=== PATIENT | male | born 1995 | race Two or more races ===

== ENCOUNTER 2020-08-26 11:57 | Inpatient (IN) | payer MEDICAID, OTHER ==
[~2020-08-26] VITALS: Ht 162.6 cm; Wt 103.2 kg
[2020-08-26 13:09] LABS: Basophils # (auto) 0.1 10 ^3/uL (0-0.2); Basophils % (auto) 0.5 % (0.0-2.0); Eosinophils # (auto) 0 10 ^3/uL (0-0.8); Eosinophils % (auto) 0.2 % (0.0-7.0); Hematocrit 45.2 % (41.0-53.0); Hemoglobin 15.9 g/dL (13.5-17.5); Lymphocytes # (auto) 1.5 10 ^3/uL (0.4-5.4); Mean Corpuscular Hemoglobin 31.5 pg (28.0-32.0); Mean Corpuscular Hgb Conc. 35.1 g/dL (32.0-36.0); Mean Corpuscular Volume 89.7 fL (80.0-100.0); Monocytes # (auto) 0.8 10 ^3/uL (0-1.3); Neutrophils # (auto) 10.3 10 ^3/uL (1.6-8.6); Neutrophils % (auto) 81.3 % (37.0-80.0); Nucleated Red Blood Cells % 0.5 %; Platelet Count (auto) 226 10^3/uL (140-450); Red Blood Cells 5.04 10^6/uL (4.5-5.90); Red Cell Distribution Width 12.8 % (11.8-14.3); White Blood Cell 12.7 10^3/uL (4.4-10.8)
[2020-08-26 13:17] LABS: Albumin 4.3 g/dL (3.4-5.0); Calcium 9.2 mg/dL (8.5-10.1); Potassium 4.1 mmol/L (3.5-5.1)
[2020-08-26 13:22] LABS: BUN/Creatinine Ratio 9.8; Bilirubin, Total 0.8 mg/dL (0.2-1.0); Total Protein 8.8 g/dL (6.4-8.2)
[2020-08-26] MEDS ORDERED: KETOROLAC TROMETH 30 MG/ML 1ML VIAL IV ONE (16:15)
[2020-08-26] MEDS ORDERED: TAMSULOSIN HYDROCHLORIDE 0.4 MG CAP PO ONE (16:15)
[2020-08-26] MEDS ORDERED: LISI20TA28 PO (16:59)
[2020-08-26] MEDS ORDERED: MORPHINE SULF INJ 2 MG/ML SYRINGE 1ML IV PRN (19:30)
[2020-08-26] MEDS ORDERED: NITROGLYCERIN 0.4 MG SL TAB SL PRN (19:30)
[2020-08-26] MEDS ORDERED: ONDANSETRON HCL 4 MG/2 ML VIAL IV PRN (19:45)
[2020-08-26] MEDS ORDERED: SOD CHL 0.45% 1,000 ML IV ONE (19:45)
[2020-08-26] MEDS ORDERED: HYDROcodone-ACET 5/325MG TAB PO PRN (19:45)
[2020-08-26] MEDS ORDERED: ACETAMINOPHEN 325 MG TAB PO PRN (19:45)
[2020-08-26 22:00] VITALS: BP 150/100
[2020-08-26 22:41] VITALS: BP 158/100
[2020-08-26] MEDS ORDERED: LISINOPRIL 20 MG TAB PO ONE (23:00)
[2020-08-26] MEDS ORDERED: ALBU108A5 PO (23:05)
[2020-08-27] MEDS: hydrALAZINE HCL 20 MG/ML VL IV PRN ×2 (02:00→21:11)
[2020-08-27 04:07] LABS: Urine Bacteria FEW /hpf (None Seen); Urine Blood Negative /uL (Negative); Urine Specific Gravity 1.012 (1.001-1.035); Urine WBC 2 /hpf (0 - 3)
[2020-08-27 05:00] VITALS: BP 157/87
[2020-08-27] MEDS: MORPHINE SULF INJ 2 MG/ML SYRINGE 1ML IV PRN ×3 (05:02→22:26)
[2020-08-27 06:51] VITALS: BP 145/82
[2020-08-27 07:09] LABS: Potassium 3.6 mmol/L (3.5-5.1)
[2020-08-27 07:11] LABS: Basophils # (auto) 0.1 10 ^3/uL (0-0.2); Basophils % (auto) 0.6 % (0.0-2.0); Eosinophils # (auto) 0.1 10 ^3/uL (0-0.8); Hematocrit 41.6 % (41.0-53.0); Hemoglobin 14.7 g/dL (13.5-17.5); Lymphocytes # (auto) 2.3 10 ^3/uL (0.4-5.4); Lymphocytes % (auto) 19.3 % (10.0-50.0); Mean Corpuscular Hemoglobin 31.9 pg (28.0-32.0); Mean Corpuscular Hgb Conc. 35.3 g/dL (32.0-36.0); Mean Corpuscular Volume 90.5 fL (80.0-100.0); Monocytes # (auto) 0.7 10 ^3/uL (0-1.3); Neutrophils # (auto) 8.6 10 ^3/uL (1.6-8.6); Neutrophils % (auto) 73.1 % (37.0-80.0); Nucleated Red Blood Cells % 0.2 %; Platelet Count (auto) 201 10^3/uL (140-450); Red Cell Distribution Width 12.8 % (11.8-14.3); White Blood Cell 11.8 10^3/uL (4.4-10.8)
[2020-08-27 07:14] LABS: BUN/Creatinine Ratio 10.3
[2020-08-27 07:15] LABS: Albumin 3.9 g/dL (3.4-5.0); Bilirubin, Total 1.1 mg/dL (0.2-1.0); Calcium 8.6 mg/dL (8.5-10.1)
[2020-08-27 09:00] VITALS: BP 147/83
[2020-08-27] MEDS: LISINOPRIL 20 MG TAB PO SCH (09:25)
[2020-08-27 13:00] VITALS: BP 150/108
[2020-08-27] MEDS ORDERED: SODIUM CHLORIDE 0.9% 1,000 ML IV ONE (15:15)
[2020-08-27] MEDS ORDERED: ACET325T10 PO (16:57)
[2020-08-27 17:06] VITALS: BP 156/95
[2020-08-27] MEDS ORDERED: TAMSULOSIN HYDROCHLORIDE 0.4 MG CAP PO SCH (18:00)
[2020-08-27] MEDS: SODIUM CHLORIDE 0.9% 1,000 ML IV SCH (21:16)
[2020-08-27 22:00] VITALS: BP 171/105
[2020-08-28 00:12] VITALS: BP 150/92
[2020-08-28] MEDS: MORPHINE SULF INJ 2 MG/ML SYRINGE 1ML IV PRN (02:39)
[2020-08-28 05:00] VITALS: BP 160/93
[2020-08-28] MEDS: hydrALAZINE HCL 20 MG/ML VL IV PRN (06:36)
[2020-08-28 08:30] VITALS: BP 138/93
[2020-08-28] MEDS: LISINOPRIL 20 MG TAB PO SCH (10:12)
[2020-08-28] MEDS ORDERED: SODIUM CHLORIDE 0.9% 1,000 ML IV ONE (11:00)
[2020-08-28] MEDS: SODIUM CHLORIDE 0.9% 1,000 ML IV SCH (12:21)
[2020-08-28 12:59] VITALS: BP 146/75
[2020-08-28 17:06] VITALS: BP 151/84
== END 2020-08-28 17:50 | disposition home or self-care (01) | DRG 465 ==
LOC: ER 11:57 → EDBD 11:57 → ER 16:18 → OVERFLOW 19:29 → EAST 22:00
PROVIDERS: ADMIT Internal Medicine; ATTEND Internal Medicine
DX: N13.2 Hydronephrosis with renal and ureteral calculous obstruction (principal); D72.829 Elevated white blood cell count, unspecified; J45.909 Unspecified asthma, uncomplicated; I10 Essential (primary) hypertension; Z20.822 Contact with and (suspected) exposure to COVID-19; Z83.3 Family history of diabetes mellitus; Z82.3 Family history of stroke; Z82.49 Family history of ischemic heart disease and other diseases of the circulatory system; Z83.42 Family history of familial hypercholesterolemia; Z82.61 Family history of arthritis; Z79.899 Other long term (current) drug therapy; Z79.891 Long term (current) use of opiate analgesic; Z79.01 Long term (current) use of anticoagulants; Z90.49 Acquired absence of other specified parts of digestive tract
CPT/HCPCS: 36415; 74176; 80053; 81001; 82962; 85025; 87426; 96360; G0378; J1885; J2405

== ENCOUNTER 2020-09-06 14:04 | Emergency (ER) | payer MEDICAID ==
[~2020-09-06] VITALS: Ht 162.6 cm; Wt 99.8 kg
[~2020-09-06 14:04] MED LIST: ACET325T10 PO; ALBU108A5 PO; LISI20TA28 PO
[2020-09-06 16:03] LABS: Albumin 4.2 g/dL (3.4-5.0); Calcium 8.9 mg/dL (8.5-10.1)
[2020-09-06 16:07] LABS: BUN/Creatinine Ratio 12.8; Bilirubin, Total 0.7 mg/dL (0.2-1.0); Total Protein 8.5 g/dL (6.4-8.2)
[2020-09-06 18:15] LABS: Urine Bacteria FEW /hpf (None Seen); Urine Blood Negative /uL (Negative); Urine Mucus FEW (None Seen); Urine WBC 6 /hpf (0 - 3)
[2020-09-06 19:47] VITALS: BP 173/100
== END 2020-09-06 19:46 | disposition home or self-care (01) ==
LOC: ER 14:04
DX: I16.0 Hypertensive urgency (principal); Z79.899 Other long term (current) drug therapy
CPT/HCPCS: 36415; 80053; 81001

== ENCOUNTER 2024-08-19 06:01 | Inpatient (IN) | payer MEDICAID ==
[~2024-08-19] VITALS: Ht 30.5 cm; Wt 454.0 kg
[~2024-08-19 06:01] MED LIST changes: +ACET-1882 PO; -ACET325T10 PO; -LISI20TA28 PO; +LISI20TA56 PO
--- NOTE | 2024-08-19 06:53 | ED.PDOC ---
GI ASSESSMENT HPI Comments 29 y/o M, with PMHx of HTN presents to the ED for CC of abdominal pain. Patient states, he has been experiencing diffuse abdominal pain with associated symptoms of nausea and vomiting x4days. Patient reports, drinking heavily on Saturday (08/15/24) and symptoms beginning after. Patient denies sweats, chills, fatigue, hematemesis, or melena. No other symptoms or modifying factors present at this time. Time Seen by MD: 06:30 Primary Care Provider: NADIYA Reviewed Notes: Nurses Notes, Medications, Allergies Allergies: Coded Allergies: No Known Drug Allergy (Verified Allergy, Unknown, 08/26/20) Home Meds Active Scripts Acetaminophen (Acetaminophen) 325 Mg Tab, 650 MG PO Q6HP PRN, #60 TAB Prov:JILLIAN LAMA MD 08/27/20 Reported Medications Albuterol Sulfate (Albuterol Sulfate Hfa) 108 Mcg/Act Aer, 1-2 PUFF PO PRN for SHORTNESS OF BREATH 08/26/20 Lisinopril (Lisinopril) 20 Mg Tab, 20 MG PO DAILY for 30 Days, MG 08/26/20 Information Source: Patient Mode of Arrival: Ambulatory Timing: Days Duration: Since onset Prehospital treatment: None Quality: None Vomitus: Watery Stool: Normal Severity: Moderate Recent: None Recent Hx of: None Pain Location: Diffuse Modifying Factors: Nothing Associated sign and symptoms: Nausea, Vomiting, Abdominal Pain Past Medical History PAST MEDICAL HISTORY: HTN Surgical History: Denies all surgeries Family History Family History: Family hx of DM, Family hx of HTN Family History (Other): Asthma, Hyperlipidema Social History Smoker: Non-Smoker Alcohol: Occasionally Drugs: Denies Drug Use Lives In: Home Constitutional: denies: chills, diaphoresis, fatigue, fever, malaise, sweats, weakness, others EENTM: denies: blurred vision, double vision, ear bleeding, ear discharge, ear drainage, ear pain, ear ringing, eye pain, eye redness, hearing loss, mouth pain, mouth swelling, nasal discharge, nose bleeding, nose congestion, nose pain, photophobia, tearing, throat pain, throat swelling, voice changes, others Respiratory: denies: cough, hemoptysis, orthopnea, SOB at rest, shortness of breath, SOB with excertion, stridor, wheezing, others Cardiovascular: denies: chest pain, dizzy spells, diaphoresis, Dyspnea on exertion, edema, irregular heart beat, left arm pain, lightheadedness, palpitations, PND, syncope, others Gastrointestinal: reports: abdominal pain, nausea, vomiting; denies: abdomen distended, blood streaked bowels, constipated, diarrhea, dysphagia, difficulty swallowing, hematemesis, melena, poor appetite, poor fluid intake, rectal bleeding, rectal pain, others Genitourinary: denies: burning, dysuria, flank pain, frequency, hematuria, incontinence, penile discharge, penile sore, pain, testicle pain, testicle swelling, urgency, others Neurological: denies: dizziness, fainting, headache, left sided numbness, left sided weakness, numbness, paresthesia, pre-existing deficit, right sided numbness, right sided weakness, seizure, speech problems, tingling, tremors, weakness, others Musculoskeletal: denies: back pain, gout, joint pain, joint swelling, muscle pain, muscle stiffness, neck pain, others Integumetry: denies: bruises, change in color, change in hair/nails, dryness, laceration, lesions, lumps, rash, wounds, others Allergic/Immunocompromised: denies: Difficulty Healing, Frequent Infections, Hives, Itching, others Hematologic/Lymphatic: denies: anemia, blood clots, easy bleeding, easy bruising, swollen glands, others Endocrine: denies: excessive hunger, excessive sweating, excessive thirst, excessive urination, flushing, intolerance to cold, intolerance to heat, unexplained weight gain, unexplained weight loss, others Psychiatric: denies: anxiety, bipolar disorder, depression, hopeless, panic disorder, schizophrenia, sleepless, suicidal, others All Other Systems: Reviewed and Negative Physical Exam General Appearance: Moderate Distress HEENT: Normal ENT Inspection, Pharynx Normal, TMs Normal Neck: Full Range of Motion, Non-Tender, Normal, Normal Inspection Respiratory: Chest Non-Tender, Lungs Clear, No Accessory Muscle Use, No Respiratory Distress, Normal Breath Sounds Cardiovascular: No Edema, No JVD, No Murmur, No Gallop, Normal Peripheral Pulses, Regular Rate/Rhythm Breast Exam: Deferred Gastrointestinal: No Organomegaly, Non Tender, No Pulsatile Mass, Normal Bowel Sounds, Soft Genitalia: Deferred Pelvic: Deferred Rectal: Deferred Extremities: No calf tenderness, Normal capillary refill, Normal inspection, Normal range of motion, Non-tender, No pedal edema Musculoskeletal : Apperance: Normal Neurologic: Alert, starch dumper II-XII nml as Tested, No Motor Deficits, Normal Affect, Normal Mood, No Sensory Deficits Cerebellar Function: Normal Reflexes: Normal Skin: Dry, Normal Color, Warm Peripheral Pulses: 3+ Radial (R), 3+ Radial (L) Lymphatic: No Adenopathy Was a procedure done? Was a procedure done?: No GI differential Dx Differential Diagnosis: Constipation, Diverticular disease, Esophagitis, Gastritis/PUD, Gastroenteritis, Electrolyte Imbalance, Food Poisoning, Bacterial, Viral X-Ray, Labs, Meds, VS Lab Test 08/19/24 06:49 Range/Units White Blood Count 17.8 H 4.4-10.8 10^3/uL Red Blood Count 4.75 4.5-5.90 10^6/uL Hemoglobin 15.2 13.5-17.5 g/dL Hematocrit 42.9 41.0-53.0 % Mean Corpuscular Volume 90.5 80.0-100.0 fL Mean Corpuscular Hemoglobin 32.0 28.0-32.0 pg Mean Corpuscular Hemoglobin Concent 35.4 32.0-36.0 g/dL Red Cell Distribution Width 12.4 11.8-14.3 % Platelet Count 199 140-450 10^3/uL Mean Platelet Volume 9.8 6.9-10.8 fL Neutrophils (%) (Auto) 80.2 H 37.0-80.0 % Lymphocytes (%) (Auto) 11.4 10.0-50.0 % Monocytes (%) (Auto) 7.3 0.0-12.0 % Eosinophils (%) (Auto) 0.9 0.0-7.0 % Basophils (%) (Auto) 0.2 0.0-2.0 % Neutrophils # (Auto) 14.3 H 1.6-8.6 10 ^3/uL Lymphocytes # (Auto) 2.0 0.4-5.4 10 ^3/uL Monocytes # (Auto) 1.3 0-1.3 10 ^3/uL Eosinophils # (Auto) 0.2 0-0.8 10 ^3/uL Basophils # (Auto) 0 0-0.2 10 ^3/uL Nucleated Red Blood Cells 0.0 % Sodium Level 143 136-145 mmol/L Potassium Level 3.0 L 3.5-5.1 mmol/L Chloride Level 107 98-107 mmol/L Carbon Dioxide Level 26 20-31 mmol/L Anion Gap 10 5-15 Blood Urea Nitrogen 16 9-23 mg/dL Creatinine 1.25 0.700-1.30 mg/dL Glomerular Filtration Rate Calc 79 >90 mL/min BUN/Creatinine Ratio 12.8 10.0-20.0 Serum Glucose 105 74-106 mg/dL Calcium Level 9.8 8.7-10.4 mg/dL Patient alert. Complaining of nausea vomiting. Vitals stable. Answering questions. States that he has been drinking and using marijuana. Counseled patient on effects of using drugs for 15 minutes. Establish intravenous access. Was given fluids. Was given Zofran. Explained to the patient. Continue monitoring. WBC elevated. Potassium is low. Was given potassium. Was given Rocephin. Was given Flagyl. Time of 1ST Reevaluation: 07:00 Reevaluation 1ST: Unchanged Patient Education/Counseling: Diagnosis, Treatment Family Education/Counseling: No Family Present Departure 1 Departure Time of Disposition: 07:00 Impression: Primary Impression: Gastroenteritis Additional Impressions: Cannabis-induced disorder Hypokalemia Disposition: ADMITTED INPATIENT Admit to: Med Surg Condition: Guarded Critical Care Note Critical Care Time?: No Stability Stability form required: No Heart Score Heart Score: Heart Score Response (Comments) Value History N/A 0 EKG N/A 0 Age N/A 0 Risk Factors N/A 0 Troponin N/A 0 Total 0 I personally scribed for JAMIE BRITO MD ([email or web address]) on 08/19/24 at 06:53. Electronically submitted by Steff Gregory ([email or web address]). JAMIE BRITO MD August 19, 2024 06:53
[2024-08-19 07:09] LABS: Basophils # (auto) 0 10 ^3/uL (0-0.2); Basophils % (auto) 0.2 % (0.0-2.0); Eosinophils # (auto) 0.2 10 ^3/uL (0-0.8); Eosinophils % (auto) 0.9 % (0.0-7.0); Hematocrit 42.9 % (41.0-53.0); Hemoglobin 15.2 g/dL (13.5-17.5); Lymphocytes % (auto) 11.4 % (10.0-50.0); Mean Corpuscular Hgb Conc. 35.4 g/dL (32.0-36.0); Mean Corpuscular Volume 90.5 fL (80.0-100.0); Monocytes # (auto) 1.3 10 ^3/uL (0-1.3); Monocytes % (auto) 7.3 % (0.0-12.0); Neutrophils # (auto) 14.3 10 ^3/uL (1.6-8.6); Neutrophils % (auto) 80.2 % (37.0-80.0); Platelet Count (auto) 199 10^3/uL (140-450); Red Blood Cells 4.75 10^6/uL (4.5-5.90); Red Cell Distribution Width 12.4 % (11.8-14.3); White Blood Cell 17.8 10^3/uL (4.4-10.8)
[2024-08-19 07:13] LABS: Chloride 107 mmol/L (98-107); Sodium 143 mmol/L (136-145)
[2024-08-19 07:14] LABS: Anion Gap 10 (5-15); Calcium 9.8 mg/dL (8.7-10.4); Carbon Dioxide 26 mmol/L (20-31)
[2024-08-19 07:19] LABS: BUN/Creatinine Ratio 12.8 (10.0-20.0); Blood Urea Nitrogen 16 mg/dL (9-23); Glucose 105 mg/dL (74-106)
[2024-08-19] MEDS ORDERED: cefTRIAXone 1GM/50ML D5W 50 ML IV ONE (08:30)
[2024-08-19] MEDS ORDERED: DOCUSATE SOD 100 MG CAP PO PRN (09:00)
[2024-08-19] MEDS ORDERED: ACETAMINOPHEN 325 MG TAB PO PRN (09:00)
[2024-08-19] MEDS ORDERED: ONDANSETRON HCL 4 MG/2 ML VIAL IV PRN (09:00)
[2024-08-19] MEDS ORDERED: HYDROcodone-ACET 5/325MG TAB PO PRN (09:00)
--- NOTE | 2024-08-19 09:20 | DVHHP2 ---
History of Present Illness Reason for Visit: Gastroenteritis History of Present Illness The patient is a 29-year-old male with past medical history of hypertension who presented to [facility] ED with complaint of abdominal pain. Patient reports experiencing diffuse abdominal pain associated with nausea and vomiting for the past 4 days after drinking heavily on Saturday. Patient was seen and evaluated in the ED, laboratory data shows elevated WBC 17.8, platelets 199, sodium 143, potassium 3.0, BUN 16, creatinine 1.25, glucose 105, blood pressure 167/103, heart rate 62, temperature 98.5 F, O2 saturation 97% on room air. Patient was started on IV antibiotic regimen Flagyl, given Zofran 4 mg IV x1, please see medication orders section in the computer. On my assessment, patient denies chest pain, no headache, no dizziness, no shortness of breath, no abdominal pain, nausea or vomiting at this moment, no fever, no chills. No other modifying factor or other associated signs and symptoms noted. The patient was admitted for further evaluation and medical management. Past Medical History HTN Past Surgical History Denies all surgeries Family History Reviewed, noncontributory to the management of this case. Past Social History Patient lives at home, drinks alcohol occasionally, denies smoking or illicit drugs abuse. Review of Systems Constitutional: No: Fever, Chills, Sweats, Weakness, Malaise, Other Eyes: No: Pain, Vision change, Conjunctivae inflammation, Eyelid inflammation, Other, Redness ENT: No: Ear pain, Ear discharge, Nose pain, Nose discharge, Nose congestion, Mouth pain, Mouth swelling, Throat pain, Throat swelling, Other Respiratory: No: Cough, Dry, Shortness of breath, SOB with excertion, Wheezing, Hemoptysis, Pleuritic Pain, Sputum, Wheezing, Other Cardiovascular: No: Chest Pain, Palpitations, Orthopnea, Paroxysmal Noc. Dyspnea, Edema, Lt Headedness, Other Gastrointestinal: Nausea, Vomiting, Abdominal Pain; No: Diarrhea, Constipation, Melena, Hematochezia, Other Genitourinary: No Dysuria, No Frequency, No Incontinence, No Hematuria, No Retention, No Other Musculoskeletal: No: other, neck pain, shoulder pain, arm pain, back pain, hand pain, leg pain, foot pain Skin: No: Rash, Lesions, Jaundice, Bruising, Other Neurological: No: Weakness, Numbness, Incoordination, Change in speech, Confusion, Seizures, Other Allergies: Coded Allergies: No Known Drug Allergy (Verified Allergy, Unknown, 08/26/20) Medications Current Medications Medications Dose Ordered Sig/Angeli Route Start Time Stop Time Status Last Admin Dose Admin Lisinopril 10 mg DAILY PO 08/19/24 10:00 Hydralazine HCl 10 mg Q6HP PRN IV 08/19/24 09:00 Ceftriaxone Sodium 50 ml @ 100 mls/hr DAILY@09 IV 08/19/24 09:00 Metronidazole 100 ml @ 100 mls/hr Q8HR IV 08/19/24 14:00 Sodium Chloride 10 ml Q8HR IV 08/19/24 14:00 Acetaminophen/ Hydrocodone Bitart 1 tab Q4HP PRN PO 08/19/24 09:00 Ondansetron HCl 4 mg Q4HP PRN IV 08/19/24 09:00 Docusate Sodium 100 mg BIDPRN PRN PO 08/19/24 09:00 Acetaminophen 650 mg Q6HP PRN PO 08/19/24 09:00 Exam General Appearance: Alert, Oriented X3, Cooperative, No acute distress HEENT: Atraumatic, PERRLA, EOMI, Mucous membr. moist/pink Respiratory: Clear to auscultation, Normal air movement Cardiovascular: Regular rate, Normal S1, Normal S2, No murmurs Abdominal: Normal bowel sounds, Soft, No tenderness, No hepatospenomegaly, No masses Extremities: No clubbing, No cyanosis, No edema, Normal pulses, No tende rness/swelling Skin: No rashes, No breakdown, No significant lesion Neuro: Normal gait, Normal speech, Strength at 5/5 X4 ext, Normal tone, Sensation intact, Cranial nerves 3-12 NL, Reflexes 2+ Psych/Mental Status: Mental status NL, Mood NL Labs/Xrays Labs Test 08/19/24 06:49 Range/Units White Blood Count 17.8 H 4.4-10.8 10^3/uL Red Blood Count 4.75 4.5-5.90 10^6/uL Hemoglobin 15.2 13.5-17.5 g/dL Hematocrit 42.9 41.0-53.0 % Mean Corpuscular Volume 90.5 80.0-100.0 fL Mean Corpuscular Hemoglobin 32.0 28.0-32.0 pg Mean Corpuscular Hemoglobin Concent 35.4 32.0-36.0 g/dL Red Cell Distribution Width 12.4 11.8-14.3 % Platelet Count 199 140-450 10^3/uL Mean Platelet Volume 9.8 6.9-10.8 fL Neutrophils (%) (Auto) 80.2 H 37.0-80.0 % Lymphocytes (%) (Auto) 11.4 10.0-50.0 % Monocytes (%) (Auto) 7.3 0.0-12.0 % Eosinophils (%) (Auto) 0.9 0.0-7.0 % Basophils (%) (Auto) 0.2 0.0-2.0 % Neutrophils # (Auto) 14.3 H 1.6-8.6 10 ^3/uL Lymphocytes # (Auto) 2.0 0.4-5.4 10 ^3/uL Monocytes # (Auto) 1.3 0-1.3 10 ^3/uL Eosinophils # (Auto) 0.2 0-0.8 10 ^3/uL Basophils # (Auto) 0 0-0.2 10 ^3/uL Nucleated Red Blood Cells 0.0 % Sodium Level 143 136-145 mmol/L Potassium Level 3.0 L 3.5-5.1 mmol/L Chloride Level 107 98-107 mmol/L Carbon Dioxide Level 26 20-31 mmol/L Anion Gap 10 5-15 Blood Urea Nitrogen 16 9-23 mg/dL Creatinine 1.25 0.700-1.30 mg/dL Glomerular Filtration Rate Calc 79 >90 mL/min BUN/Creatinine Ratio 12.8 10.0-20.0 Serum Glucose 105 74-106 mg/dL Calcium Level 9.8 8.7-10.4 mg/dL Abdomen/pelvis CT results pending Assessment/Plan Assessment/Plan Gastroenteritis Hypokalemia Hypertension Acute abdominal pain Leukocytosis, unspecified Intractable nausea and vomiting Plan 1. Admit to med surge unit 2. Breathing treatment 3. Pain control management 4. IV antibiotic management 5. Management of fluids and electrolytes 6. Consultation for hospitalist 7. Diagnostic test abdomen/pelvis CT 8. DVT prophylaxis-on SCDs 9. Repeat labs CBC, CMP in a.m. 10. Home medication reviewed and reconciled 11. Continue with current medical management 12. Treatment plan discussed with patient and RN. Patient verbalized understanding. Plan discussed with: Patient, Other (RN) My Orders Orders - JAI DAWKINS DNP Procedure Category Date Status Time Lisinopril Tablet PHA 08/19/24 In Process (Zestril Tablet) 10:00 Hydralazine Injection PHA 08/19/24 In Process (Apresoline Inject 09:00 Ceftriaxone 1gm/50ml PHA 08/19/24 In Process D5w (Rocephin) 09:00 Metronidazole PHA 08/19/24 In Process 500mg/100ml (Flagyl 14:00 Allergies TASHI 08/19/24 In Process 08:56 Code Status CODE 08/19/24 Transmitted 08:56 Sodium Chloride Lock PHA 08/19/24 In Process (Saline Lock Ns) 14:00 Oxygen Per Hour RT 08/19/24 Transmitted 08:56 Hydrocodone-Acet PHA 08/19/24 In Process 5/325mg Tab ([place] 09:00 Ondansetron Hcl PHA 08/19/24 In Process (Zofran) 09:00 Docusate Sodium PHA 08/19/24 In Process Capsule (Colace 09:00 Complete Blood Count LAB 08/20/24 Verified 04:00 Comprehensive LAB 08/20/24 Verified Metabolic Panel 04:00 Condition: Serious TASHI 08/19/24 In Process 08:56 Acetaminophen Tablet PHA 08/19/24 In Process (Tylenol Tablet) 09:00 Clear Liq Diet DIET 08/19/24 Transmitted Breakfast Bedrest With Bathroom TASHI 08/19/24 In Process Privileg 08:56 Sequential TASHI 08/19/24 In Process Compression Device Problem List: (1) Gastroenteritis (2) Hypokalemia (3) Hypertension (4) Acute abdominal pain (5) Leukocytosis, unspecified (6) Intractable nausea and vomiting Date of Service: August 19, 2024 Billing Provider: JAI DAWKINS DNP Common Visit Codes: [id number] INP/OBS CARE (MOD) JAI DAWKINS DNP August 19, 2024 09:20
[2024-08-19] MEDS ORDERED: NITROGLYCERIN 0.4 MG SL TAB SL PRN (09:30)
[2024-08-19] MEDS ORDERED: MORPHINE SULFATE INJ 2 MG/ml SYRG IV PRN (09:30)
[2024-08-19] MEDS: ONDANSETRON HCL 4 MG/2 ML VIAL IV ONE (09:41)
[2024-08-19] MEDS: POTASSIUM EFFERVESENT TAB 25 MEQ PO ONE (09:41)
[2024-08-19] MEDS: cefTRIAXone 1GM/50ML D5W 50 ML IV SCH (09:42)
[2024-08-19] MEDS: SODIUM CHLORIDE 0.9% 1,000 ML IV ONE (09:42)
[2024-08-19] MEDS: metroNIDAZOLE 500MG/100ML 100 ML IV ONE (09:54)
[2024-08-19] MEDS: LISINOPRIL 5 MG TAB PO SCH (10:07)
[2024-08-19 10:37] LABS: Amphetamine Screen, Urine Neg (NEGATIVE)
[2024-08-19 10:38] LABS: Cannabinoid Screen, Urine Pos (NEGATIVE)
[2024-08-19 10:41] LABS: Barbiturate Scree,Urine Neg (NEGATIVE); Benzodiazephine Screen, Urine Neg (NEGATIVE); Cocaine Screen, Urine Neg (NEGATIVE); Opiate Scree,Urine Neg (NEGATIVE); Phencyclidine Screen, Urine Neg (NEGATIVE)
--- NOTE | 2024-08-19 10:55 | DVH ---
Exam: CT CT AB PEL WO CON-NO ORAL OR IV History: Intractable nausea and vomiting Comparison Study: CT ABD PELVIS WO CONTRAST on DOS: 08/26/20 Technique: Multidetector spiral CT of the abdomen and pelvis was performed from lung bases to pubic s ymphysis. Imaging was performed without intravenous contrast. Coronal and sagittal multiplanar reform ats were obtained from the axial data set by the technologist. Radiation Dose : 1. Abdomen/Pelvis: CTDIvol 10.31 mGy, DLP 613.22 mGy*cm. Findings: Evaluation of vasculature and solid organs is limited due to lack of intravenous contrast use. Lung Bases: Lung bases are clear. Visualized portions of the heart and pericardium are unremarkable. Liver: The liver is normal in size. No focal lesions. Gallbladder and Biliary Tree: Sludge in the gallbladder. No intrahepatic or extrahepatic biliary eugenia tristan dilatation. Spleen: Unremarkable Pancreas: The pancreas is grossly unremarkable. Adrenal Glands: Unremarkable Kidneys: Kidneys are unremarkable without calculi or hydronephrosis. GI tract: The stomach is grossly normal in appearance. No evidence of small bowel wall thickening or abnormal dilatation to suggest bowel obstruction. The colon is unremarkable. The appendix is not visu alized, however no inflammatory changes in the right lower quadrant to suggest acute appendicitis. Peritoneum/mesentery/retroperitoneum. No evidence of free intraperitoneal air. No ascites. Lymph nodes: 0.9 cm left groin lymph node. Abdominal Wall: Unremarkable. Vasculature: The visualized abdominal aorta is normal in size and caliber. Evaluation of abdominal a nd pelvic vessels is limited due to lack of intravenous contrast. Urinary Bladder: Grossly unremarkable for degree of distention. Pelvic Organs: Unremarkable Musculoskeletal: No aggressive focal bony lesions, acute fractures or dislocation. Soft tissues: There is a right lateral abdominal wall hernia containing peritoneal fat and vasculatur e. Mild fat stranding within the hernia. IMPRESSION: 1. Right lateral abdominal wall hernia containing peritoneal fat and vasculature. Incarcerated herni a is not excluded. 2. No bowel obstruction.
[2024-08-19] MEDS: SODIUM CHLOR 0.9% PF (SALINE LOCK) 10ML VIAL/SYR IV SCH (14:00)
[2024-08-19] MEDS: metroNIDAZOLE 500MG/100ML 100 ML IV SCH (16:44)
[2024-08-19 17:00] VITALS: BP 182/103; PULSE 69; RESP 16; TEMP 98.9; O2SAT 99
[2024-08-19] MEDS: hydrALAZINE HCL 20 MG/ML VL IV PRN (17:33)
[2024-08-19 17:38] VITALS: BP 182/103; PULSE 69; RESP 16; TEMP 98.9; O2SAT 99
[2024-08-19 21:00] VITALS: BP_SYST 137; BP_SYST 187; BP_DIAS 75; BP_DIAS 85; PULSE 75; PULSE 81; RESP 17; RESP 19; TEMP 98; TEMP 99.1; O2SAT 95; O2SAT 98
[2024-08-20 01:00] VITALS: BP 151/96; PULSE 93; RESP 16; TEMP 99.1; O2SAT 98
[2024-08-20] MEDS: LABETALOL HCL 20 MG/4 ML VL IV ONE (03:31)
[2024-08-20 05:04] VITALS: BP 156/106; PULSE 78; RESP 18; TEMP 98.6; O2SAT 98
[2024-08-20 06:40] LABS: Basophils # (auto) 0.1 10 ^3/uL (0-0.2); Basophils % (auto) 0.5 % (0.0-2.0); Eosinophils # (auto) 0.1 10 ^3/uL (0-0.8); Eosinophils % (auto) 0.9 % (0.0-7.0); Hematocrit 41.1 % (41.0-53.0); Hemoglobin 14.8 g/dL (13.5-17.5); Lymphocytes # (auto) 2.3 10 ^3/uL (0.4-5.4); Mean Corpuscular Hemoglobin 32.2 pg (28.0-32.0); Mean Corpuscular Hgb Conc. 36.1 g/dL (32.0-36.0); Mean Corpuscular Volume 89.3 fL (80.0-100.0); Monocytes # (auto) 0.8 10 ^3/uL (0-1.3); Monocytes % (auto) 7.2 % (0.0-12.0); Neutrophils # (auto) 8.1 10 ^3/uL (1.6-8.6); Neutrophils % (auto) 71.4 % (37.0-80.0); Platelet Count (auto) 191 10^3/uL (140-450); Red Blood Cells 4.61 10^6/uL (4.5-5.90); Red Cell Distribution Width 12.4 % (11.8-14.3); White Blood Cell 11.3 10^3/uL (4.4-10.8)
[2024-08-20 07:00] LABS: Alanine Aminotransferase 28 U/L (7-40); Albumin 4.7 g/dL (3.2-4.8); Alkaline Phosphatase 83 U/L (46-116); Anion Gap 13 (5-15); Aspartate Aminotransferase 20 U/L (13-40); BUN/Creatinine Ratio 9.4 (10.0-20.0); Calcium 9.9 mg/dL (8.7-10.4); Carbon Dioxide 22 mmol/L (20-31); Glucose 93 mg/dL (74-106); Sodium 143 mmol/L (136-145); Total Protein 7.5 g/dL (5.7-8.2)
[2024-08-20 07:01] LABS: Bilirubin, Total 1.1 mg/dL (0.2-1.0)
[2024-08-20 07:03] LABS: Blood Urea Nitrogen 9 mg/dL (9-23); Chloride 108 mmol/L (98-107); Potassium 2.9 mmol/L (3.5-5.1)
[2024-08-20 08:12] VITALS: BP 165/111; PULSE 65; RESP 18; TEMP 98.8; O2SAT 98
--- NOTE | 2024-08-24 19:52 | DVHDS2 ---
Discharge Summary Date of Admission August 19, 2024 at 09:19 Date of Discharge: August 20, 2024 Labs/Diagnostic Data: Laboratory Results Test 08/20/24 06:00 08/19/24 09:29 White Blood Count 11.3 10^3/uL (4.4-10.8) Red Blood Count 4.61 10^6/uL (4.5-5.90) Hemoglobin 14.8 g/dL (13.5-17.5) Hematocrit 41.1 % (41.0-53.0) Mean Corpuscular Volume 89.3 fL (80.0-100.0) Mean Corpuscular Hemoglobin 32.2 pg (28.0-32.0) Mean Corpuscular Hemoglobin Concent 36.1 g/dL (32.0-36.0) Red Cell Distribution Width 12.4 % (11.8-14.3) Platelet Count 191 10^3/uL (140-450) Mean Platelet Volume 9.7 fL (6.9-10.8) Neutrophils (%) (Auto) 71.4 % (37.0-80.0) Lymphocytes (%) (Auto) 20.0 % (10.0-50.0) Monocytes (%) (Auto) 7.2 % (0.0-12.0) Eosinophils (%) (Auto) 0.9 % (0.0-7.0) Basophils (%) (Auto) 0.5 % (0.0-2.0) Neutrophils # (Auto) 8.1 10 ^3/uL (1.6-8.6) Lymphocytes # (Auto) 2.3 10 ^3/uL (0.4-5.4) Monocytes # (Auto) 0.8 10 ^3/uL (0-1.3) Eosinophils # (Auto) 0.1 10 ^3/uL (0-0.8) Basophils # (Auto) 0.1 10 ^3/uL (0-0.2) Nucleated Red Blood Cells 0.0 % Sodium Level 143 mmol/L (136-145) Potassium Level 2.9 mmol/L (3.5-5.1) Chloride Level 108 mmol/L (98-107) Carbon Dioxide Level 22 mmol/L (20-31) Anion Gap 13 (5-15) Blood Urea Nitrogen 9 mg/dL (9-23) Creatinine 0.96 mg/dL (0.700-1.30) Glomerular Filtration Rate Calc 109 mL/min (>90) BUN/Creatinine Ratio 9.4 (10.0-20.0) Serum Glucose 93 mg/dL (74-106) Calcium Level 9.9 mg/dL (8.7-10.4) Total Bilirubin 1.1 mg/dL (0.2-1.0) Aspartate Amino Transferase (AST) 20 U/L (13-40) Alanine Aminotransferase (ALT) 28 U/L (7-40) Alkaline Phosphatase 83 U/L (46-116) Total Protein 7.5 g/dL (5.7-8.2) Albumin 4.7 g/dL (3.2-4.8) Urine Opiates Screen Neg (NEGATIVE) Urine Fentanyl Screen Neg (NEGATIVE) Urine Barbiturates Screen Neg (NEGATIVE) Urine Phencyclidine Screen Neg (NEGATIVE) Urine Amphetamines Screen Neg (NEGATIVE) Urine Benzodiazepines Screen Neg (NEGATIVE) Urine Cocaine Screen Neg (NEGATIVE) Urine Cannabinoids Screen Pos (NEGATIVE) Other Laboratory Tests 08/20/24 06:00 Brief Hx & Hospital Course: Patient was not seen He left AMA Condition at Discharge: Undetermined Final Diagnosis/Problems List Gastroenteritis Discharge Disposition: AMA SNF Discharge Will this Physician continue t: No Discharge Statement: "Patient was advised to return to the ER or call 911 if any headaches, dizziness, shortness of breath, chest pain, abdominal pain, bleeding, fevers, or worsening of medical condition. Patient was counseled about treatment plan, medications, possible side effects, patientverbalized understanding. All questions were answered to the best of my ability. This discharge took greater then 30 minutes in planning, reviewing documentation, counseling the patient, and discussing with other team members." ASSESSMENT ASSESSMENT Assessment Date of Service: August 20, 2024 Billing Provider: ASHLEY HERNANDEZ MD Common Visit Codes: NOT BILLABLE ASHLEY HERNANDEZ MD Aug 24, 2024 19:52
== END 2024-08-20 09:29 | disposition left against medical advice (07) | DRG 249 ==
LOC: ER 06:04 → OVERFLOW 09:19
PROVIDERS: ADMIT Internal Medicine Geriatric Medicine; ATTEND Internal Medicine Geriatric Medicine
DX: A09 Infectious gastroenteritis and colitis, unspecified (principal); E87.6 Hypokalemia; I10 Essential (primary) hypertension; Z53.29 Procedure and treatment not carried out because of patient's decision for other reasons; Z83.3 Family history of diabetes mellitus; Z82.5 Family history of asthma and other chronic lower respiratory diseases; Z82.49 Family history of ischemic heart disease and other diseases of the circulatory system
CPT/HCPCS: 36415; 74176; 80048; 80053; 80307; 85025; G0378; J2405; J3490